=== PATIENT | male | born 1970 | race Caucasian/White ===

== ENCOUNTER 2023-05-29 09:53 | Emergency (ER) | payer BC ==
[~2023-05-29] VITALS: Ht 170.2 cm; Wt 83.9 kg
[2023-05-29 09:53] VITALS: BP_SYST 143; PULSE 65; RESP 19; TEMP 97.8; O2SAT 95
[2023-05-29 10:51] LABS: ANION GAP 7 (5-15); BASOPHILS # (AUTO) 0.1 K/uL (0.0-0.2); CALCIUM 8.1 mg/dL (8.4-11.0); CARBON DIOXIDE 28 mmol/L (23-29); CHLORIDE 105 mmol/L (98-107); CREATININE 0.84 mg/dL (0.55-1.30); EOSINOPHILS # (AUTO) 0.4 K/uL (0.0-0.4); EOSINOPHILS % (AUTO) 5.6 % (0.0-4.0); GFR AFRICAN AMERICAN 124 mL/min (>90); GLUCOSE 110 mg/dL (74-106); HEMATOCRIT 46.7 % (36-54); MEAN CORPUSCULAR HEMOGLOBIN 30 pg (27-31); MEAN CORPUSCULAR HGB CONC 34 % (32-36); MEAN CORPUSCULAR VOLUME 89 fL (79.0-98.0); MONOCYTES # (AUTO) 0.5 K/uL (0.0-1.0); MONOCYTES % (AUTO) 6.7 % (1.7-9.3); NEUTROPHILS # (AUTO) 4.5 K/uL (1.8-7.7); NEUTROPHILS % (AUTO) 59.7 % (40.0-70.0); PLATELET COUNT (AUTO) 212 K/uL (130-430); POTASSIUM 4.5 mmol/L (3.5-5.1); RED BLOOD CELL COUNT(AUTO) 5.28 MIL/uL (4.2-6.2); RED CELL DISTRIBUTION WIDTH 12.7 % (9.0-15.0); SODIUM SERUM 140 mmol/L (136-145); UREA NITROGEN, BLOOD 18 mg/dL (8-21); WHITE BLOOD COUNT (AUTO) 7.5 K/uL (4.8-10.8)
[2023-05-29 10:57] LABS: GFR NON AFRICAN-AMERICAN 103 mL/min (>90)
[2023-05-29] MEDS ORDERED: NABU-140 PO (11:39)
== END 2023-05-29 11:50 | disposition home or self-care (01) ==
LOC: SED 09:53
DX: M94.0 Chondrocostal junction syndrome [Tietze] (principal); R07.89 Other chest pain; Z88.0 Allergy status to penicillin; Z79.899 Other long term (current) drug therapy
CPT/HCPCS: 36415; 71045; 80048; 84484; 85025; 85379; 93005; 99285